=== PATIENT | male | born 1950 | race Caucasian/White ===

== ENCOUNTER 2017-10-30 07:31 | Day surgery (SDC) | payer OTHER ==
[2017-10-30] MEDS ORDERED: NS 1,000 ML IV ONE (07:33)
[2017-10-30] MEDS ORDERED: ASPIRIN EC 325 MG TAB PO ONE (07:33)
[2017-10-30] MEDS ORDERED: FAMOTIDINE 20 MG TAB PO ONE (07:33)
[2017-10-30] MEDS ORDERED: diphenhydrAMINE 25 MG CAP PO ONE (07:33)
[2017-10-30] MEDS ORDERED: DIAZEPAM 5 MG TAB PO ONE (07:33)
[2017-10-30 08:15] LABS: PLATELET COUNT 167 10^3/uL (150-400)
[2017-10-30 08:24] LABS: INR 0.94 (0.83-1.16); PROTIME(PATIENT) 12.8 SEC (12.0-15.0)
[2017-10-30] MEDS ORDERED: fentaNYL 100 MCG/2 ML INJ ONE (08:31)
[2017-10-30] MEDS ORDERED: MIDAZOLAM 2 MG/2 ML VIAL ONE (08:31)
[2017-10-30] MEDS ORDERED: LIDOCAINE 1% 300 MG/30 ML SDV ONE (08:31)
[2017-10-30] MEDS ORDERED: VERAPAMIL 5 MG/2 ML VIAL ONE (08:31)
[2017-10-30] MEDS ORDERED: IOPAMIDOL (ISOVUE-370) 150 ML BTL IV ONE (08:32)
[2017-10-30] MEDS ORDERED: HEPARIN 10,000 UNIT/10 ML MDV (1,000 UNIT/ML) ONE (08:32)
--- NOTE | 2017-10-30 08:52 | PDHPUP ---
History & Physical Update H&P update statement: This history and physical update is based on an assessment of the patient which was completed after admission or registration (within 24 hours), but prior to the surgery/procedure. H&P update: H&P reviewed & patient examined, no change in patient's condition since H&P completed
--- NOTE | 2017-10-30 08:53 | PDPROPOC ---
Sedation Plan of Care Sedation Plan of Care: vital signs stable, mental status noted, patient educated of risks, benefits, alternatives, patient can tolerate sedation ASA Classification: ASA 2 Planned drugs: fentanyl, midazolam Mallampati Score: Class 2 Mallampati Reference Image: Patient passed 3-3-2 rule?: Yes
[2017-10-30] MEDS ORDERED: NITROGLYCERIN 0.4 MG BTL SL PRN (09:52)
[2017-10-30] MEDS ORDERED: HYDROCODONE/APAP 5/325 TAB PO PRN (09:52)
[2017-10-30] MEDS ORDERED: ONDANSETRON 4 MG/2 ML VIAL IVP PRN (09:52)
[2017-10-30] MEDS ORDERED: ATROPINE SULFATE 1 MG/10 ML SYR IVP PRN (09:52)
--- NOTE | 2017-10-30 09:57 | PDDXCAT ---
Diagnostic Cath Note - . Date: 10/30/17 Monotypist: Ladarius Indication: CCC Class III and IV angina on medical treatment - Procedure Access: right wrist Procedure: left heart catheterization, coronary angiography, left ventriculogram - Materials Left Heart Cath size: 5F Left Heart Cath materials: standard multipack (JL4, JR4, pigtail) - Findings-Left Heart Catheterization LM: Distal Left Main with 40% stenosis. LAD: Fluoroscopy reveals the presence of a previously stented segment in the proximal LAD. Angiography that the stent is patent. The mid-LAD contains a 70% stenosis just distal to the stented segment. This lesion involves the origin of a small diagonal branch. The remainder of the LAD exhibits mild to moderate irregularities. LCX: The circumflex system consists of a bifurcated principal obtuse marginal branch. The upper limb has at least 60% stenosis at the bifurcation. The inferior limb (diminutive) has 70% lesion at its origin. RCA: The RCA has diffuse moderate disease in its midportion. At the junction of the mid and distal thirds, there is a complex high grade stenosis of 90% with the appearance of a filling defect. The distal RCA has mild to moderate irregularities. The proximal portion the second posterolateral branch has 60-70 % stenosis. EDP: 19 mmHg LVEF: 60% Wall motion: Normal Complications: None Estimated blood loss: <50ml Closure method: TR Band Assessment: 1) Normal LV systolic function. 2) Multivessel CAD as described above. Plan: CT surgery consult for CABG. Patient Problems: Problems Problem Status Onset CAD - Coronary arteriosclerosis Active Placement of stent in coronary artery Active
--- NOTE | 2017-11-01 12:56 | CPEKG ---
Test Reason : OPEN Blood Pressure : / mmHG Vent. Rate : 058 BPM Atrial Rate : 057 BPM P-R Int : 183 ms QRS Dur : 135 ms QT Int : 435 ms P-R-T Axes : 016 086 031 degrees QTc Int : 428 ms Sinus rhythm Right bundle branch block Confirmed by Cortes Strong ([id number] on 11/01/2017 12:56:26 PM Referred By: Confirmed By:Cortes Strong
== END 2017-10-30 13:30 | disposition home or self-care (01) ==
LOC: FCATH 07:31
PROVIDERS: ATTEND Internal Medicine Interventional Cardiology
PROC: B2151ZZ Fluoroscopy of Left Heart using Low Osmolar Contrast (ICD-10-PCS; principal; 2017-10-30)
PROC: 4A023N7 Measurement of Cardiac Sampling and Pressure, Left Heart, Percutaneous Approach (ICD-10-PCS; principal; 2017-10-30)
PROC: B2111ZZ Fluoroscopy of Multiple Coronary Arteries using Low Osmolar Contrast (ICD-10-PCS; principal; 2017-10-30)
DX: I25.10 Atherosclerotic heart disease of native coronary artery without angina pectoris (principal)
CPT/HCPCS: 93005; 93458; C1769; J1644; J2250; J3010; Q9967

== ENCOUNTER → 2017-11-14 | Outpatient (CLI) | payer OTHER | LOC: FIMAGING 10:07 → EDSTATUS 10:08 | PROVIDERS: ATTEND Thoracic Surgery (Cardiothoracic Vascular Surgery) | DX: Z48.812 Encounter for surgical aftercare following surgery on the circulatory system (principal); J90 Pleural effusion, not elsewhere classified; J98.11 Atelectasis; Z95.1 Presence of aortocoronary bypass graft ==

== ENCOUNTER → 2017-11-21 | Outpatient (CLI) | payer OTHER | LOC: FIMAGING 13:26 | PROVIDERS: ATTEND Thoracic Surgery (Cardiothoracic Vascular Surgery) | DX: Z48.812 Encounter for surgical aftercare following surgery on the circulatory system (principal); J90 Pleural effusion, not elsewhere classified; Z95.1 Presence of aortocoronary bypass graft ==

== ENCOUNTER → 2018-02-04 | Outpatient (CLI) | payer OTHER | LOC: FIMAGING 09:14 | PROVIDERS: ATTEND Thoracic Surgery (Cardiothoracic Vascular Surgery) | DX: T81.32XA Disruption of internal operation (surgical) wound, not elsewhere classified, initial encounter (principal); Z95.1 Presence of aortocoronary bypass graft ==